=== PATIENT | female | born 1970 | race Caucasian/White ===

== ENCOUNTER 2018-08-11 20:24 | Emergency (ER) | payer OTHER ==
[~2018-08-11] VITALS: Ht 157.5 cm; Wt 65.8 kg
[2018-08-11] MEDS ORDERED: RESTORIL7.5 MG (20:37)
[2018-08-11] MEDS ORDERED: ATIVAN0.5 M1 (20:37)
== END 2018-08-11 22:30 | disposition home or self-care (01) ==
LOC: ER 20:24
DX: S61.224A Laceration with foreign body of right ring finger without damage to nail, initial encounter (principal); W25.XXXA Contact with sharp glass, initial encounter; Y93.89 Activity, other specified; Y92.89 Other specified places as the place of occurrence of the external cause; Y99.8 Other external cause status

== ENCOUNTER → 2018-08-18 | Emergency (ER) | payer OTHER ==
[~2018-08-18] VITALS: Ht 157.5 cm; Wt 66.2 kg
[~2018-08-18] MED LIST: ATIVAN0.5 M1; RESTORIL7.5 MG
== END | disposition home or self-care (01) ==
LOC: ER 13:18
DX: Z48.02 Encounter for removal of sutures (principal)